=== PATIENT | male | born 1985 | race Hispanic/Latino ===

== ENCOUNTER 2024-09-05 00:23 | Emergency (ER) | payer SELFPAY ==
[~2024-09-05] VITALS: Ht 162.6 cm; Wt 78.5 kg
--- NOTE | 2024-09-05 00:51 | NUR ---
[facility] CONTACTED AT THIS TIME TO REPORT ANIMAL BITE, DISPATCH STATED OFFICER IS EN ROUTE TO TAKE REPORT FROM PT./CHIQUI
--- NOTE | 2024-09-05 01:10 | NUR ---
[facility] AT BEDSIDE SPEAKING WITH PATIENT./CHIQUI
[2024-09-05] MEDS ORDERED: AMOX1TAB16 PO (01:26)
--- NOTE | 2024-09-05 01:29 | ERN ---
ED Note History of Present Illness Stated Complaint: C/O CAT BITE TO RIGHT THUMB YESTERDAY Chief Complaint: Animal Bite Time Seen by MD: 00:38 Time Seen by Midlevel: 00:40 Dictation: 39-year-old male coming in with complaints of a cat bite that happened yesterday. Patient states the cat was a stray came in today with complaints of right thumb pain and redness. Patient states he is not up-to-date with his vaccinations. PD was called by primary nurse. Allergies: Coded Allergies: No Known Allergies (Unverified Allergy, Unknown, 09/05/24) Past Medical History Past Medical History: No Pertinent History Surgical History: None Review of System Dictation Constitutional: Negative for fever,chills, and weight loss Eyes: Negative for injury, pain,redness, and discharge ENT: Negative for injury,pain or swelling Cardiovascular: Negative for chest pain, palpitations, and edema Respiratory: Negative for shortness of breath, cough, and wheezing, Abdomen/GI: Negative for abdominal pain, nausea, vomiting, diarrhea, and constip ation Back: Negative for injury and pain : Negative for injury, bleeding and discharge MS/Extremity: Negative for injury and deformity Skin: Negative for rash, and discoloration, animal bite to right thumb Neuro: Negative for headache, weakness, numbness, tingling, and seizure Psych: Negative for suicide ideation, homicidal ideation, and hallucinations Review of Systems: was completed Initial Vital Sign VS Vital Signs Date Time Temp Pulse Resp B/P (MAP) Pulse Ox O2 Delivery O2 Flow Rate FiO2 09/05/24 00:26 98.1 77 18 135/89 97 Room Air Physical Exam Dictation General: awake, alert, NAD Head/Face: Normocephalic, atraumatic Eyes: PERRL, EOMI, vision at baseline ENT: oral cavity clear, TMs clear, no signs of infection Neck: Trachea midline, supple, no nuchal rigidity Cardiovascular: RRR, normal S1/S2, No MRGs, no JVD Respiratory: CTAB, no respiratory distress, No rales or wheezes Abdomen: Soft, non-tender, non-distended, normal bowel sounds, no guarding or rebound. Skin: Warm, dry, normal turgor, no rash, redness, swelling noted to the right thumb, patient does have full range of motion, no open wound, no oozing, no wound noted MS/Extremity: Pulses equal, no cyanosis, neurovascular intact, FROM Neuro: COAx4, GCS 15, strength 5/5, CN 2-12 intact, normal cerebellar exam, normal gait, Psych: Normal behavior, mood, and affect normal ED Course ED Course Orders Procedure Category Date Status Time Tetanus,Diphtheria PHA 09/05/24 Complete Tox [Adult] (Diphther 01:00 Rabies Vacc, Human PHA 09/05/24 Complete Diploid/Pf (Imovax Ra 01:00 Current Medications Medications (Trade) Dose Ordered Sig/Barbara Route PRN Reason Start Time Stop Time Status Last Admin Dose Admin Rabies Vaccine Human Diploid Cell (Imovax Rabies Vaccine Vial) 2.5 unit ONCE ONCE IM 09/05/24 01:00 09/05/24 01:01 DC Tetanus/ Diphtheria Toxoids Adsorbed (DiphthERIA-teTANUS TOXOID [ADULT]/ DECAVAC) 0.5 ml ONCE ONCE IM 09/05/24 01:00 09/05/24 01:01 DC Vital Signs Date Time Temp Pulse Resp B/P (MAP) Pulse Ox O2 Delivery O2 Flow Rate FiO2 09/05/24 00:26 98.1 77 18 135/89 97 Room Air Medical Decision Making MDM MDM: 39-year-old male coming in with complaints of a cat bite that happened yesterday. Patient states the cat was a stray came in today with complaints of right thumb pain and redness. Patient states he is not up-to-date with his vaccinations. PD was called by primary nurse. Patient was updated with the his tetanus and also received the rabies vaccine. Patient will be discharged antibiotics. Patient was educated on when to return back to the ER for follow up rabies vaccination. Patient verbalized understanding, answered all questions. Differential diagnosis: Cellulitis, abscess, septic arthritis Rationale: Tests considered and ordered secondary to shared decision making include: Previous outside records reviewed: Old ER visits. Risk of complication and/or morbidity or mortality of patient management: None Medications-Per medication reconciliation Need for hospitalization: Patient does not meet criteria for hospitalization. Need for emergency major/minor surgery: No There are no social concerns with this patient. Prescription drug management Prescriptions will include symptomatic care Patient's prior external medical records from other ER visits were reviewed by me as indicated. Prior testing and results from previous visits were reviewed. Prior tests were taken into account with medical decision making and resource utilization, independent historian/historians were used to obtain complete medical history. I independently interpreted the test that were performed, results were reviewed by me and considered findings on radiology if ordered. Medical management and examination interpretation discussions were had by me with other qualified healthcare professionals as indicated for the patient's care. DX & DISP Disposition: Discharge Departure Impression: Primary Impression: Cat bite of finger Condition: Stable Scripts Amoxicillin/Potassium Clav (Amox Tr-K Clv 875-125 mg Tab) 875 Mg-125 Mg Tablet 1 EACH PO BID for 7 Days, #14 TAB 0 Refills Prov: KIM SCHNEIDER NP 09/05/24 Additional Instructions: You received your 1st rabies vaccine today. You should come back in three days for your 2nd dose then again on day 7 and day 14. Second dose: September 08, 2024 Third dose: September 12 2024 Fourth dose: September 19, 2024 Referrals: SELF,REFERRAL (PCP) Time of Disposition: 01:25 I have reviewed the case, and I agree with, Diagnosis and Plan KIM SCHNEIDER NP Sep 05, 2024 01:29
[2024-09-05] MEDS: RABIES VACC, HUMAN DIPLOID/PF 2.5 UNIT VIAL IM ONE (01:34)
[2024-09-05 01:40] VITALS: BP 133/76; PULSE 84; RESP 19; TEMP 98.4; O2SAT 99
== END 2024-09-05 01:49 | disposition home or self-care (01) ==
LOC: EDH 00:23
DX: S61.031A Puncture wound without foreign body of right thumb without damage to nail, initial encounter (principal); W55.01XA Bitten by cat, initial encounter; Y93.89 Activity, other specified; Y92.89 Other specified places as the place of occurrence of the external cause; Y99.8 Other external cause status
CPT/HCPCS: 90471; 90472; 90675; 90714; 99284